=== PATIENT | male | born 1990 | race Caucasian/White ===

== ENCOUNTER 2022-12-15 06:32 | Emergency (ER) | payer SELFPAY ==
[~2022-12-15] VITALS: Ht 170.2 cm; Wt 82.0 kg
[2022-12-15 06:35] VITALS: BP 159/59
== END 2022-12-15 10:57 | disposition home or self-care (01) ==
LOC: ER 06:32
DX: F10.10 Alcohol abuse, uncomplicated (principal)
CPT/HCPCS: 82962; 99283